=== PATIENT | male | born 1995 | race Caucasian/White ===

== ENCOUNTER 2018-08-24 01:43 | Emergency (ER) | payer SELFPAY ==
[2018-08-24 01:46] VITALS: BP 110/62; PULSE 79; RESP 16; TEMP 37.4; O2SAT 95
--- NOTE | 2018-08-24 01:47 | W.ED.GENAD ---
Discharge Plan Disposition Patient Disposition: HOME Condition: Stable Discharge Details Chief Complaint: RespSymp Clinical Impression: Sinusitis Primary Care Provider: Marzena Fabian V ED Provider: Randal Hargrove Home Meds and New Rx's Prescriptions: New cetirizine [Zyrtec] 10 mg tablet 10 mg PO DAILY PRN (Reason: allergy symptoms) Qty: 30 RF: 0 Discharge Instructions Instructions: Sinusitis (ED) Medical Decision Making 23 yo male who denies chronic medical problems comes in with cc of feeling pressure in his face for 2 days. Denies fevers, changes in vision, eye pain, sore throat, has had a clear runny nose. On exam he has pain with percussion over the maxillary sinuses, normal oropharynx, normal tm's. His symptoms are likely due to sinusitis, advised antihistamines and nasal irrigation. Has not had symptoms for 10 days and no evidence of bacterial sinusitis so do not feel abx indicated. He was advised to f/u with pcp if not improving in a week and return precautions given Differential Diagnosis sinusitis, uri HPI General Mode of arrival: ambulatory. Date/Time Provider Initiated Documentation: 08/24/18 01:44. Limitations to Documentation: no limitations. Information obtained by: patient. History of Present Illness 23 year old M presents to the emergency department with the chief complaint of sinus pressure, described as moderate, with intensity rated at 5. Quality is described as aching, and is localized to the face. Patient reports no radiation. Patient started experiencing this day(s) (2) and it has been constant. No relieving factors improve symptom(s), No exacerbating factors reported . Patient notes no other symptoms.. Patient did receive the following treatments prior to arrival, none Related Data Home Medications Medication Instructions Recorded Confirmed cetirizine [Zyrtec] 10 mg PO DAILY PRN #30 tab 08/24/18 Previous Rx's Medication Instructions Recorded cetirizine [Zyrtec] 10 mg PO DAILY PRN #30 tab 08/24/18 Allergies Allergy/AdvReac Type Severity Reaction Status Date / Time No Known Allergies Allergy Unverified 08/24/18 01:54 Review of Systems Review of Systems All systems reviewed & are unremarkable except as noted in HPI and below Constitutional Denies chills and Denies fever(s) Cardiovascular Denies chest pain and Denies dyspnea Respiratory Denies cough and Denies dyspnea Gastrointestinal Denies abdominal pain, Denies nausea and Denies vomiting Integumentary/Breasts Denies rash Allergic/Immunologic Denies urticaria PFSH Medical History Gastroesophageal reflux disease Seizure Surgical History Circumcision Social History Smoking and Tabacco status: Never Exam Const General: no acute distress Orientation: alert HENMT Head: normal to inspection Ears: external ears normal General nose exam: external nose normal Mouth: moist mucous membranes Eyes General: appearance normal, both eyes and all related structures Neck Neck: normal visual inspection Resp Effort & Inspection: normal respiratory effort and able to speak in complete sentences Cardio Rate: regular rate Skin General skin exam: no rashes or lesions noted Neuro General: alert and oriented x3 Extrem General: normal to inspection Psych Mental Status: mental status grossly normal
--- NOTE | 2018-08-24 02:01 | ED.GENADUL_ITS ---
Discharge Plan Disposition Patient Disposition: HOME Condition: Stable Discharge Details Chief Complaint: RespSymp Clinical Impression: Sinusitis Primary Care Provider: Marznea Fabian V ED Provider: Randal Hargrove Home Meds and New Rx's Prescriptions: New cetirizine [Zyrtec] 10 mg tablet 10 mg PO DAILY PRN (Reason: allergy symptoms) Qty: 30 RF: 0 Discharge Instructions Instructions: Sinusitis (ED) Medical Decision Making 23 yo male who denies chronic medical problems comes in with cc of feeling pressure in his face for 2 days. Denies fevers, changes in vision, eye pain, sore throat, has had a clear runny nose. On exam he has pain with percussion over the maxillary sinuses, normal oropharynx, normal tm's. His symptoms are likely due to sinusitis, advised antihistamines and nasal irrigation. Has not had symptoms for 10 days and no evidence of bacterial sinusitis so do not feel abx indicated. He was advised to f/u with pcp if not improving in a week and return precautions given Differential Diagnosis sinusitis, uri HPI General Mode of arrival: ambulatory . Date/Time Provider Initiated Documentation: 08/24/18 01:44 . Limitations to Documentation: no limitations . Information obtained by: patient . History of Present Illness 23 year old M presents to the emergency department with the chief complaint of sinus pressure, described as moderate, with intensity rated at 5. Quality is described as aching, and is localized to the face. Patient reports no radiation. Patient started experiencing this day(s) (2) and it has been constant. No relieving factors improve symptom(s), No exacerbating factors reported . Patient notes no other symptoms.. Patient did receive the following treatments prior to arrival, none Related Data Home Medications Medication Instructions Recorded Confirmed cetirizine [Zyrtec] 10 mg PO DAILY PRN #30 tab 08/24/18 Previous Rx's Medication Instructions Recorded cetirizine [Zyrtec] 10 mg PO DAILY PRN #30 tab 08/24/18 Allergies Allergy/AdvReac Type Severity Reaction Status Date / Time No Known Allergies Allergy Unverified 08/24/18 01:54 Review of Systems Review of Systems All systems reviewed & are unremarkable except as noted in HPI and below Constitutional Denies chills and Denies fever(s) Cardiovascular Denies chest pain and Denies dyspnea Respiratory Denies cough and Denies dyspnea Gastrointestinal Denies abdominal pain, Denies nausea and Denies vomiting Integumentary/Breasts Denies rash Allergic/Immunologic Denies urticaria PFSH Medical History Gastroesophageal reflux disease Seizure Surgical History Circumcision Social History Smoking and Tabacco status: Never Exam Const General: no acute distress Orientation: alert HENMT Head: normal to inspection Ears: external ears normal General nose exam: external nose normal Mouth: moist mucous membranes Eyes General: appearance normal, both eyes and all related structures Neck Neck: normal visual inspection Resp Effort & Inspection: normal respiratory effort and able to speak in complete sentences Cardio Rate: regular rate Skin General skin exam: no rashes or lesions noted Neuro General: alert and oriented x3 Extrem General: normal to inspection Psych Mental Status: mental status grossly normal
== END 2018-08-24 02:05 | disposition home or self-care (01) ==
LOC: ER 02:07
PROVIDERS: Emergency Provider Emergency Medicine; PCP Pediatrics
DX: J01.90 Acute sinusitis, unspecified (principal)
CPT/HCPCS: 99283